=== PATIENT | male | born 1970 | race African-American/Black ===

== ENCOUNTER 2018-05-02 13:11 | Inpatient (IN) | payer MEDICAID ==
[~2018-05-02] VITALS: Ht 172.7 cm; Wt 89.8 kg
[2018-05-02] MEDS ORDERED: MORPHINE SULFATE 4 MG/ML CPJ (NOT FOR IM USE) IV STA (14:24)
[2018-05-02] MEDS ORDERED: SODIUM CHLORIDE 0.9% 1,000 ML IV ONE (14:24)
[2018-05-02] MEDS ORDERED: ONDANSETRON HCL 4MG/2ML INJ IV STA (14:24)
[2018-05-02] MEDS ORDERED: FOLIC ACID 1 MG, THIAMINE HCL 100 MG, MVI, ADULT NO.1 10 ML in DEXTROSE 5% WATER 1,000 ML IV ONE ×4 (14:30)
[2018-05-02] MEDS ORDERED: LORAZEPAM 2MG/ML CPJ IV ONE (14:30)
[2018-05-02 15:22] LABS: BASOPHILS % 1.1 % (0.0-2.0); EOSINOPHILS % 0.3 % (0.0-5.0); HEMATOCRIT. 37.3 % (42.0-52.0); HEMOGLOBIN. 12.3 g/dL (14.0-18.0); LYMPHOCYTES % 15.4 % (20.0-50.0); MEAN CORPUSCULAR HEMOGLOBIN 30.8 pg (28.0-32.0); MEAN CORPUSCULAR VOLUME 92.9 fL (80.0-94.0); MEAN PLATELET VOLUME 8.6 fl (7.4-10.4); MONOCYTES % 7.3 % (2.0-8.0); NEUTROPHILS % 75.9 % (40.0-76.0); PLATELET 162 x1000/uL (130-400); RED BLOOD CELL COUNT 4.01 mill/uL (4.7-6.1); RED CELL DISTRIBUTION WIDTH 14.7 % (11.6-14.6)
[2018-05-02 15:23] LABS: CHLORIDE 106 mEq/L (98-107)
[2018-05-02 15:27] LABS: PARTIAL THROMBOPLASTIN TIME 32.3 sec (23.4-31.0); PROTHROMBIN TIME 10.5 sec (9.1-11.1)
[2018-05-02 15:31] LABS: ETHANOL BLOOD 19 mg/dL
[2018-05-02] MEDS ORDERED: ACETAMINOPHEN 650MG SUPP PR PRN (17:30)
[2018-05-02] MEDS ORDERED: DOCUSATE SODIUM 100MG CAPSULE PO PRN (17:30)
[2018-05-02] MEDS ORDERED: MAGNESIUM/ALUMINUM HYDROXIDE/SIMETHICONE 30ML UDC PO PRN (17:30)
[2018-05-02] MEDS ORDERED: HYDROCODONE/ACETAMINOPHEN 5/325MG TABLET PO PRN (17:30)
[2018-05-02] MEDS ORDERED: ACETAMINOPHEN 325MG TABLET PO PRN (17:30)
[2018-05-02] MEDS ORDERED: CLONIDINE 0.1MG TABLET PO PRN (17:30)
[2018-05-02] MEDS ORDERED: GUAIFENESIN 200MG/10ML SUGAR FREE UDC PO PRN (17:30)
[2018-05-02] MEDS ORDERED: IPRATROPIUM/ALBUTEROL 0.5-3(2.5)MG/3ML NEB INH PRN (17:30)
[2018-05-02] MEDS ORDERED: NA PHOS,M-B/NA PHOS,DI-BA ENEMA 118ML PR PRN (17:30)
[2018-05-02] MEDS ORDERED: DIPHENHYDRAMINE 50MG/ML VIAL IV PRN (17:30)
[2018-05-02] MEDS ORDERED: MVI, ADULT NO.1 10 ML, FOLIC ACID 1 MG, THIAMINE HCL 100 MG in DEXT 5%/0.45% NACL 1000M... IV SCH ×4 (17:30)
[2018-05-02 17:35] LABS: CLARITY URINE CLEAR (CLEAR); COLOR URINE ORANGE (YELLOW); KETONES URINE 1+ (NEGATIVE); LEUKOCYTE ESTERASE URINE NEGATIVE (NEGATIVE); NITRITE URINE NEGATIVE (NEGATIVE); OCCULT BLOOD URINE NEGATIVE (NEGATIVE); PROTEIN URINE TRACE (NEGATIVE); UROBILINOGEN URINE 0.2 E.U./dL (0.2-1.0)
[2018-05-02 18:03] LABS: *BARBITURATES SCREEN URINE PRESUMTIVE POSITIVE (NEGATIVE)
[2018-05-02 18:04] LABS: *AMPHETAMINES SCREEN URINE NEGATIVE (NEGATIVE); *BENZODIAZEPINES SCREEN URINE NEGATIVE (NEGATIVE); *COCAINE SCREEN URINE NEGATIVE (NEGATIVE); METHADONE URINE SCREEN NEGATIVE (NEGATIVE); OPIATES URINE SCREEN PRESUMTIVE POSITIVE (NEGATIVE); PHENCYCLIDINE URINE SCREEN NEGATIVE (NEGATIVE)
[2018-05-02 18:05] LABS: CANNABINOID URINE SCREEN NEGATIVE (NEGATIVE)
[2018-05-02 18:18] LABS: TOTAL IRON BINDING CAPACITY 324 ug/dL (250-450)
[2018-05-02 18:50] LABS: VITAMIN B12 SERUM 227 pg/mL (211-911)
[2018-05-02 18:51] LABS: FERRITIN 107 ng/mL (22-322)
[2018-05-02] MEDS ORDERED: NICOTINE 14MG PATCH TD NR (23:15)
[2018-05-02] MEDS: CHLORDIAZEPOXIDE 25MG CAPSULE PO SCH (23:27)
[2018-05-02] MEDS ORDERED: POTASSIUM CHLORIDE INJ 40 MEQ in DEXT 5% WATER 250 ML IV NR (23:30)
[2018-05-02] MEDS: NICOTINE 14MG PATCH TD SCH (23:54)
[2018-05-02] MEDS: LORAZEPAM 2MG/ML CPJ IV PRN (23:55)
[2018-05-03] MEDS: CHLORDIAZEPOXIDE 25MG CAPSULE PO SCH (06:51)
[2018-05-03 17:12] LABS: HEMATOCRIT. 39.5 % (42.0-52.0); HEMOGLOBIN. 13.2 g/dL (14.0-18.0); MEAN CORPUSCULAR HEMOGLOBIN 31.1 pg (28.0-32.0); MEAN CORPUSCULAR VOLUME 93.4 fL (80.0-94.0); MEAN PLATELET VOLUME 8.5 fl (7.4-10.4); PLATELET 151 x1000/uL (130-400); RED BLOOD CELL COUNT 4.23 mill/uL (4.7-6.1); RED CELL DISTRIBUTION WIDTH 14.2 % (11.6-14.6)
[2018-05-03 17:22] LABS: CREATINE KINASE 802 IU/L (39-308)
[2018-05-03 17:23] LABS: CREATINE KINASE MB FRACTION 1.6 ng/mL (0.5-3.6)
[2018-05-03 17:39] LABS: PLATELET ESTIMATE NORMAL
[2018-05-03 18:57] LABS: CHLORIDE 101 mEq/L (98-107)
[2018-05-03 19:05] LABS: HDL CHOLESTEROL 94 mg/dL (40-59); LDL CHOLESTEROL 85 mg/dL (5-100)
[2018-05-03 19:06] LABS: T4 FREE 0.76 ng/dL (0.76-1.46)
[2018-05-03 21:47] VITALS: BP 178/108
[2018-05-04] VITALS: BP 166/85
[2018-05-04] MEDS ORDERED: KETOROLAC 15MG/ML VIAL IV PRN (00:30)
[2018-05-04 04:00] VITALS: BP 152/102
[2018-05-04] MEDS: [UNRECOGNIZED DRUG - REMARK] IV SCH ×3 (04:06)
[2018-05-04] MEDS: CHLORDIAZEPOXIDE 25MG CAPSULE PO SCH ×3 (05:30→22:25)
[2018-05-04] MEDS: LORAZEPAM 2MG/ML CPJ IV PRN (05:41)
[2018-05-04 08:00] VITALS: BP 124/94
[2018-05-04] MEDS: FAMOTIDINE 20MG/2ML VIAL IV SCH ×2 (10:28→20:45)
[2018-05-04] MEDS ORDERED: SERT100T MT (10:28)
[2018-05-04] MEDS ORDERED: LURA40TA MT (10:28)
[2018-05-04] MEDS: NICOTINE 14MG PATCH TD SCH ×2 (10:28→10:29)
[2018-05-04] MEDS: THIAMINE HCL 100MG TABLET PO SCH (10:29)
[2018-05-04 12:00] VITALS: BP 127/91
[2018-05-04] MEDS ORDERED: DEXT 5%/0.45% NACL 1000ML 1,000 ML IV SCH (18:00)
[2018-05-04 18:15] VITALS: BP 134/87
[2018-05-04] MEDS: SERTRALINE HCL 100MG TABLET PO SCH (18:58)
[2018-05-04 20:00] VITALS: BP 125/79
[2018-05-04] MEDS ORDERED: MEDICATION NOT ON FORMULARY EA (Lurasidone Hcl (Latuda) 1 TAB) MT SCH (21:00)
[2018-05-05] VITALS (7 sets, daily range): BP systolic 132–145; BP diastolic 68–89
[2018-05-05] MEDS: [UNRECOGNIZED DRUG - REMARK] IV SCH ×3 (05:00)
[2018-05-05] MEDS: CHLORDIAZEPOXIDE 25MG CAPSULE PO SCH ×3 (05:59→21:30)
[2018-05-05] MEDS: FAMOTIDINE 20MG/2ML VIAL IV SCH ×2 (11:18→21:31)
[2018-05-05] MEDS: THIAMINE HCL 100MG TABLET PO SCH (11:18)
[2018-05-05] MEDS: SERTRALINE HCL 100MG TABLET PO SCH (11:18)
[2018-05-05] MEDS: NICOTINE 14MG PATCH TD SCH (11:19)
== END 2018-05-05 23:05 | DRG 816 ==
LOC: ER 13:11 → ENRESERV 19:23 → CANRESERV 19:23 → 8WST 05-03 16:39 → ENRESERV 05-03 18:00 → CANRESERV 05-03 18:00 → ENRESERV 05-03 18:28
PROVIDERS: ADMIT Internal Medicine; ATTEND Internal Medicine
DX: T51.0X1A Toxic effect of ethanol, accidental (unintentional), initial encounter (principal); E72.20 Disorder of urea cycle metabolism, unspecified; R45.851 Suicidal ideations; E87.1 Hypo-osmolality and hyponatremia; K29.20 Alcoholic gastritis without bleeding; F10.239 Alcohol dependence with withdrawal, unspecified; F32.9 Major depressive disorder, single episode, unspecified; E87.6 Hypokalemia; D64.9 Anemia, unspecified; E86.0 Dehydration; I10 Essential (primary) hypertension; E80.6 Other disorders of bilirubin metabolism; Y90.9 Presence of alcohol in blood, level not specified; F17.200 Nicotine dependence, unspecified, uncomplicated; Y90.0 Blood alcohol level of less than 20 mg/100 ml; R74.0 Nonspecific elevation of levels of transaminase and lactic acid dehydrogenase [LDH]; Y92.89 Other specified places as the place of occurrence of the external cause; Z59.0 Homelessness
CPT/HCPCS: 36415; 71045; 74176; 76700; 80061; 80305; 80307; 80329; 82140; 82550; 82553; 82607; 82728; 83036; 83540; 83550; 83735; 84439; 84443; 84484; 93005; 93306; 93970; 96365; 96366; 96368; 96375; 96376; 99284; 99285; G0482; J1200; J1885; J2060; J2270; J2405; J3411; J3480; J3490; J7030; J7060; J7070

== ENCOUNTER 2018-05-17 15:03 | Emergency (ER) | payer MEDICAID ==
[~2018-05-17] VITALS: Ht 185.4 cm; Wt 100.0 kg
[~2018-05-17 15:03] MED LIST: LURA40TA MT; SERT100T MT
[2018-05-17 18:15] VITALS: BP 118/61
[2018-05-17 18:31] LABS: *AMPHETAMINES SCREEN URINE NEGATIVE (NEGATIVE); *BARBITURATES SCREEN URINE NEGATIVE (NEGATIVE)
[2018-05-17 18:32] LABS: *BENZODIAZEPINES SCREEN URINE PRESUMTIVE POSITIVE (NEGATIVE); *COCAINE SCREEN URINE NEGATIVE (NEGATIVE); CANNABINOID URINE SCREEN NEGATIVE (NEGATIVE); METHADONE URINE SCREEN NEGATIVE (NEGATIVE); OPIATES URINE SCREEN NEGATIVE (NEGATIVE); PHENCYCLIDINE URINE SCREEN NEGATIVE (NEGATIVE)
== END 2018-05-17 19:13 | disposition left against medical advice (07) ==
LOC: ER 15:03
DX: F10.229 Alcohol dependence with intoxication, unspecified (principal); Y90.9 Presence of alcohol in blood, level not specified; G92 Toxic encephalopathy
CPT/HCPCS: 80305; 99283

== ENCOUNTER 2018-05-20 07:54 | Inpatient (IN) | payer MEDICAID ==
[~2018-05-20] VITALS: Ht 184.2 cm; Wt 94.4 kg
[2018-05-20] MEDS ORDERED: KETOROLAC 30MG/ML VIAL IV STA (10:32)
[2018-05-20 10:49] LABS: CLARITY URINE CLEAR (CLEAR); COLOR URINE YELLOW (YELLOW); KETONES URINE TRACE (NEGATIVE); LEUKOCYTE ESTERASE URINE NEGATIVE (NEGATIVE); NITRITE URINE NEGATIVE (NEGATIVE); OCCULT BLOOD URINE NEGATIVE (NEGATIVE); PROTEIN URINE 1+ (NEGATIVE); UROBILINOGEN URINE 0.2 E.U./dL (0.2-1.0)
[2018-05-20 10:55] LABS: BASOPHILS % 1.2 % (0.0-2.0); EOSINOPHILS % 0.9 % (0.0-5.0); HEMATOCRIT. 46.6 % (42.0-52.0); HEMOGLOBIN. 15.2 g/dL (14.0-18.0); LYMPHOCYTES % 36.7 % (20.0-50.0); MEAN CORPUSCULAR HEMOGLOBIN 31.1 pg (28.0-32.0); MEAN CORPUSCULAR VOLUME 95.6 fL (80.0-94.0); MEAN PLATELET VOLUME 7.9 fl (7.4-10.4); MONOCYTES % 3.7 % (2.0-8.0); NEUTROPHILS % 57.5 % (40.0-76.0); PLATELET 316 x1000/uL (130-400); RED BLOOD CELL COUNT 4.88 mill/uL (4.7-6.1); RED CELL DISTRIBUTION WIDTH 15.3 % (11.6-14.6)
[2018-05-20 11:00] LABS: CHLORIDE 110 mEq/L (98-107)
[2018-05-20 11:07] LABS: *AMPHETAMINES SCREEN URINE NEGATIVE (NEGATIVE); *BARBITURATES SCREEN URINE NEGATIVE (NEGATIVE)
[2018-05-20 11:08] LABS: *BENZODIAZEPINES SCREEN URINE PRESUMTIVE POSITIVE (NEGATIVE); *COCAINE SCREEN URINE NEGATIVE (NEGATIVE); CANNABINOID URINE SCREEN NEGATIVE (NEGATIVE); METHADONE URINE SCREEN NEGATIVE (NEGATIVE); OPIATES URINE SCREEN NEGATIVE (NEGATIVE); PHENCYCLIDINE URINE SCREEN NEGATIVE (NEGATIVE)
[2018-05-20 11:17] LABS: ETHANOL BLOOD 324 mg/dL
[2018-05-20] MEDS ORDERED: ACETAMINOPHEN 325MG TABLET PO ONE (12:45)
[2018-05-20] MEDS ORDERED: SODIUM CHLORIDE 0.9% 1,000 ML IV ONE (15:43)
[2018-05-20] MEDS ORDERED: CHLORDIAZEPOXIDE 25MG CAPSULE PO ONE (16:00)
[2018-05-20] MEDS ORDERED: LORAZEPAM 2MG/ML CPJ IV ONE (16:00)
[2018-05-20] MEDS ORDERED: ONDANSETRON HCL 4MG/2ML INJ IV ONE ×2 (16:00→20:30)
[2018-05-20] MEDS ORDERED: KETOROLAC 30MG/ML VIAL IV ONE (16:45)
[2018-05-20 21:20] VITALS: BP 164/88
[2018-05-20] MEDS ORDERED: CYCL5TAB PO (22:36)
[2018-05-20] MEDS ORDERED: ENOXAPARIN 30MG/0.3ML SYR SUBCUT SCH (23:00)
[2018-05-20] MEDS: PANTOPRAZOLE SODIUM 40 MG/VIAL IV SCH (23:47)
[2018-05-20] MEDS: LORAZEPAM 2MG/ML CPJ IV PRN (23:47)
[2018-05-20] MEDS: HYDROMORPHONE HCL/PF 2MG/ML CPJ IV PRN (23:59)
[2018-05-20] MEDS: ENOXAPARIN 40MG/0.4ML SYR SUBCUT SCH (23:59)
[2018-05-20] MEDS: METOCLOPRAMIDE HCL 10MG/2ML VIAL IV SCH (23:59)
[2018-05-21] VITALS: BP 174/99
[2018-05-21] MEDS: LOSARTAN POTASSIUM 50 MG TABLET PO SCH ×3 (00:24→20:37)
[2018-05-21] MEDS: DEXT 5%/0.45% NACL KCL 20MEQ/L 1,000 ML IV SCH ×3 (01:28→18:00)
[2018-05-21 03:55] VITALS: BP 158/92
[2018-05-21] MEDS: METOCLOPRAMIDE HCL 10MG/2ML VIAL IV SCH ×3 (05:55→17:11)
[2018-05-21 06:58] LABS: BASOPHILS % 0.9 % (0.0-2.0); EOSINOPHILS % 1.5 % (0.0-5.0); HEMATOCRIT. 39.1 % (42.0-52.0); HEMOGLOBIN. 12.8 g/dL (14.0-18.0); LYMPHOCYTES % 39.2 % (20.0-50.0); MEAN CORPUSCULAR HEMOGLOBIN 31.1 pg (28.0-32.0); MEAN PLATELET VOLUME 8.5 fl (7.4-10.4); MONOCYTES % 11.7 % (2.0-8.0); NEUTROPHILS % 46.7 % (40.0-76.0); PLATELET 230 x1000/uL (130-400); RED BLOOD CELL COUNT 4.11 mill/uL (4.7-6.1); RED CELL DISTRIBUTION WIDTH 14.3 % (11.6-14.6)
[2018-05-21 07:02] LABS: CHLORIDE 105 mEq/L (98-107)
[2018-05-21 07:23] LABS: ETHANOL BLOOD < 10 mg/dL
[2018-05-21 08:00] VITALS: BP 147/89
[2018-05-21] MEDS: PANTOPRAZOLE SODIUM 40 MG/VIAL IV SCH (09:06)
[2018-05-21] MEDS: ENOXAPARIN 40MG/0.4ML SYR SUBCUT SCH (09:07)
[2018-05-21] MEDS: HYDROMORPHONE HCL/PF 2MG/ML CPJ IV PRN (11:35)
[2018-05-21 12:00] VITALS: BP 163/86
[2018-05-21 16:00] VITALS: BP 160/98
[2018-05-21] MEDS: LORAZEPAM 2MG/ML CPJ IV PRN (17:55)
[2018-05-21 20:17] VITALS: BP 153/78
[2018-05-21] MEDS ORDERED: POTASSIUM CHLORIDE 10MEQ TABLET SR PO NR (21:00)
[2018-05-22] VITALS: BP 160/99
[2018-05-22] MEDS: METOCLOPRAMIDE HCL 10MG/2ML VIAL IV SCH ×4 (01:23→18:00)
[2018-05-22] MEDS: HYDROMORPHONE HCL/PF 2MG/ML CPJ IV PRN ×2 (01:27→20:15)
[2018-05-22] MEDS: LORAZEPAM 2MG/ML CPJ IV PRN ×2 (03:25→21:35)
[2018-05-22 08:32] VITALS: BP 156/94
[2018-05-22] MEDS: PANTOPRAZOLE SODIUM 40 MG/VIAL IV SCH (08:59)
[2018-05-22] MEDS: LOSARTAN POTASSIUM 50 MG TABLET PO SCH ×2 (09:00→21:07)
[2018-05-22] MEDS: ENOXAPARIN 40MG/0.4ML SYR SUBCUT SCH (09:01)
[2018-05-22] MEDS: DEXT 5%/0.45% NACL KCL 20MEQ/L 1,000 ML IV SCH ×2 (10:26→15:00)
[2018-05-22 12:30] VITALS: BP 140/85
[2018-05-22 16:30] VITALS: BP 145/87
[2018-05-22 20:00] VITALS: BP 160/98
[2018-05-23] VITALS: BP 146/86
[2018-05-23] MEDS: METOCLOPRAMIDE HCL 10MG/2ML VIAL IV SCH ×3 (00:27→12:42)
[2018-05-23] MEDS: DEXT 5%/0.45% NACL KCL 20MEQ/L 1,000 ML IV SCH (02:41)
[2018-05-23 04:00] VITALS: BP 149/95
[2018-05-23] MEDS: HYDROMORPHONE HCL/PF 2MG/ML CPJ IV PRN ×2 (05:43→15:32)
[2018-05-23] MEDS: LORAZEPAM 2MG/ML CPJ IV PRN (08:39)
[2018-05-23] MEDS: PANTOPRAZOLE SODIUM 40 MG/VIAL IV SCH (08:39)
[2018-05-23] MEDS: ENOXAPARIN 40MG/0.4ML SYR SUBCUT SCH (08:39)
[2018-05-23] MEDS: LOSARTAN POTASSIUM 50 MG TABLET PO SCH (08:39)
[2018-05-23 12:00] VITALS: BP 153/98
[2018-05-23] MEDS ORDERED: LORAZEPAM 1MG TABLET PO PRN (12:15)
[2018-05-23 16:27] VITALS: BP 154/99
== END 2018-05-23 16:59 | disposition home or self-care (01) | DRG 241 ==
LOC: ER 08:03 → 6WST 16:25 → EDBEDREQTM 16:34 → EDBEDREQ 16:34 → ENRESERV 20:00
PROVIDERS: ADMIT Internal Medicine; ATTEND Internal Medicine
DX: K29.20 Alcoholic gastritis without bleeding (principal); E87.0 Hyperosmolality and hypernatremia; R45.851 Suicidal ideations; F20.9 Schizophrenia, unspecified; K86.1 Other chronic pancreatitis; E11.9 Type 2 diabetes mellitus without complications; D64.9 Anemia, unspecified; R16.0 Hepatomegaly, not elsewhere classified; K76.0 Fatty (change of) liver, not elsewhere classified; M25.70 Osteophyte, unspecified joint; K82.8 Other specified diseases of gallbladder; F17.200 Nicotine dependence, unspecified, uncomplicated; T51.0X1A Toxic effect of ethanol, accidental (unintentional), initial encounter; F31.9 Bipolar disorder, unspecified; E86.0 Dehydration; Y90.8 Blood alcohol level of 240 mg/100 ml or more; I10 Essential (primary) hypertension; Z59.0 Homelessness; Y92.89 Other specified places as the place of occurrence of the external cause; Z88.8 Allergy status to other drugs, medicaments and biological substances; Z71.6 Tobacco abuse counseling; Z71.41 Alcohol abuse counseling and surveillance of alcoholic; F10.239 Alcohol dependence with withdrawal, unspecified
CPT/HCPCS: 36415; 74176; 80305; 80307; 80329; 82962; 84443; 96361; 96374; 96375; 96376; 99285; C1893; C9113; J1170; J1650; J1885; J2060; J2405; J2765; J7030

== ENCOUNTER 2018-09-19 02:52 | Emergency (ER) | payer MEDICAID ==
[~2018-09-19] VITALS: Ht 185.4 cm; Wt 75.0 kg
[~2018-09-19 02:52] MED LIST changes: +CYCL5TAB PO
[2018-09-19 03:01] VITALS: BP 146/96
== END 2018-09-19 03:00 | disposition left against medical advice (07) ==
LOC: ER 02:52
DX: R10.9 Unspecified abdominal pain (principal); Z53.21 Procedure and treatment not carried out due to patient leaving prior to being seen by health care provider